=== PATIENT | male | born 1955 | race Caucasian/White ===

== ENCOUNTER → 2020-05-03 | Outpatient (CLI) | payer BC ==
[~2020-05-03] MED LIST: AMLO1TAB24 PO; ATOR1TAB21 PO; HYDR25TAB PO; IRBE300T7 PO; METO1TAB7 PO
--- NOTE | 2020-05-03 10:22 | RADONC.CN ---
Radiation Oncology Hx/Consult Radiation Oncology Consult Date of Service: May 03, 2020 Pt Identifier Jm Nichols is a 64 year old male with a history of prostate cancer T1c Kacy 3+3=6 PSA 20.8 who is seen for consideration of RT. Diagnosis/Treatment History Oncologic History Followed by Dr. Mehta for elevated PSA: 08/16/19 PSA 3.3 02/27/20 20.8 03/16/20 TRUS biopsy: Kacy 3+3=6 in 2/12 cores Patient was referred to medical oncology and staging studies were ordered: 05/03/20 Bone scan pending 05/17/20 MRI prostate pending IPSS 2 CESAR 21 Interval History Feels well. No bone pain. Had recent knee replacement which is his only source of pain. He has stable 1x nocturia as his only urinary symptom. He has good stream. He has good erectile function. He has regular bowel movements daily with no bleeding in his stool. Appetite good weight stable. Past Medical History: HPL HTN Past Surgical History: Knee replacement Elbow surgery Family History: No family cancer history Social History: Non-smoker Drinks 1-2 drinks daily Allergies / Meds Allergies: Coded Allergies: Golden (Verified Adverse Reaction, Severe, anaphylaxis, 04/24/20) apple (Verified Adverse Reaction, Severe, anaphylaxis, 04/24/20) Home Meds Reported Medications Metoprolol Succinate (Metoprolol Succinate) 50 Mg Tab.er.24h, 1 TAB PO DAILY 04/24/20 Irbesartan (Irbesartan) 300 Mg Tablet, 1 TAB PO DAILY 04/24/20 Amlodipine Besylate (Amlodipine Besylate) 5 Mg Tablet, 1 TAB PO DAILY 04/24/20 Atorvastatin Calcium (Atorvastatin Calcium) 20 Mg Tablet, 1 TAB PO DAILY 04/24/20 Hydrochlorothiazide (Hydrochlorothiazide) 25 Mg Tablet, 1 TAB PO QAM 04/24/20 Review of Systems Constitutional: Denies: Chills, Fever, Night Sweats Eyes: Denies: Pain, Vision change HEENT: Denies: Head Aches, Dysphagia, Sore Throat Skin: Denies: Rash, Lesions, Bruising Pulmonary: Denies: Dyspnea, Cough, Pleuritic Chest Pain, Other Symptoms Cardiovascular: Denies: Chest Pain, Palpitations, Edema Gastrointestinal: Denies: Nausea, Vomiting, Abdominal Pain, Diarrhea Genitourinary: Denies: Dysuria, Frequency, Incontinence Hematologic: Denies: Bruising, Petecchia, Enlarged Lymph Nodes Musculoskeletal: Reports: Leg pain; Denies: Neck pain, Back pain Neurological: Denies: Weakness, Numbness, Incoordination Psych: Reports: Mood Normal; Denies: Memory Issues, Thoughts of Self Harm Vital Signs Ht 70 Wt 182 lb T 98 P 73 RR 18 BP 158/82 O2 98% Pain 0 Fatigue 0 General Exam: Positive: Alert, Cooperative, No Acute Distress Eye Exam: Positive: PERRLA, EOMI ENT EXAM: Positive: Mucous membr. moist/pink, Pharynx Normal Neck Exam: Negative: Thyromegaly, Lymphadenopathy Chest Exam: Positive: Normal air movement; Negative: Rales, Rhonchi, Wheezing Heart Exam: Positive: Rate Normal, Regular Rhythm Abdomen Exam: Positive: Soft; Negative: Tenderness, Mass Male Exam: Positive: Normal Prostate; Negative: Lesions, Tenderness Extremity Exam: Negative: Edema, Tenderness Skin Exam: Positive: Nl turgor and temperature; Negative: Rash Neuro Exam: Positive: Normal Gait, Normal Speech, Cranial Nerves 3-12 NL; Negative: Strength at 5/5 X4 ext, Normal Tone, Sensation Intact, Reflexes 2+, Other Diagnostic and Laboratory Diagnostic Review Radiologic images, relevant labs and pathology reports were personally reviewed and discussed with Mr. Nichols. Assessment and Plan Impression Mr. Nichols is a 64 year old male with a history of T1c Kacy 3+3=6 PSA 20.8 who is seen for consideration of RT. Stage [id number] [place] 3+3=6 PSA 20.8 prostate adenocarcinoma Performance Status ECOG 0 Plan We had an extensive discussion with Mr. Nichols regarding the diagnosis at hand and available therapeutic options. He is a healthy man, with no urinary or ED symptoms at baseline. I am not comfortable classifying him as high risk prostate cancer as of yet, given his incomplete staging and lack of follow up PSA testing after the abnormal result in February 2020. I do not think testing now post biopsy would be useful and so have ordered a repeat level in June 2020 (he wishes to defer management decisions about his prostate cancer until after the holidays, which is entirely reasonable). He has staging bone scan and MRI prostate pending which will be useful given the high PSA reading and the discordant small volume of Kacy 6 in only 2/12 cores on biopsy. It is speculative at this point where in the risk groupings he will fall therefore discussions of treatment options today were equally speculative. Given his youth and health, no doubt he would be appropriate for surgery if no additional high risk features are uncovered on staging. He would also be appropriate for SBRT with SpaceOAR which I discussed with him in detail. I would given 36.25 Gy in 5 fractions with VMAT. If however, he had a high risk lesion on MRI or additional rise in PSA, then I would likely err on the side of moderate hypofractionation +/- SpaceOAR and ADT as appropriate. I reviewed the side effect profiles of surgery and RT in general. He will see Dr. Warren in [place] for his opinion on RP. I will see Mr. Nichols back in June with repeat PSA to review final recommendations. After discussing the risks, benefits and alternatives to radiation therapy, Mr. Nichols was amenable to pursuing staging and a surgical opinion prior to deciding. We instructed the patient that if there were any questions,concerns or changes in clinical status in the interim to contact us. Recommendations Follow up in June 2020 with repeat PSA Bone scan MRI prostate as previously ordered Surgical opinion in [place] RANDY HAMMOND MD May 03, 2020 10:22
== END ==
LOC: M ONCR 07:48
PROVIDERS: ATTEND General Practice
DX: C61 Malignant neoplasm of prostate (principal)

== ENCOUNTER → 2020-05-03 | Outpatient (CLI) | payer BC ==
--- NOTE | 2020-05-03 14:45 | REP ---
INDICATION: PROSTATE CANCER. COMPARISON: None. TECHNIQUE/RADIOTRACER AND DOSE: Following the intravenous administration of 22.0 mCi technetium 99 M MDP, multiple images of the whole body are obtained 3 hours post injection in various projections. FINDINGS: There is focal increased uptake in the posterior right 7th through 11th ribs compatible with rib fractures. There is mild arthritic uptake at both acromioclavicular joints. Photopenic right knee prosthesis is noted. There is significant increased uptake in the right patella, in the distal right femur and proximal tibia. There is mildly increased uptake extending into the adjacent femoral and tibial shafts. There is mild increased soft tissue uptake in the right lower extremity. Renal and bladder activity are seen. IMPRESSION: Focal increased uptake in the posterior right 7th through 11th ribs compatible with rib fractures. Fairly intense increased uptake in the distal right femur and proximal right tibia as well as the patella. There is a photopenic right knee prosthesis. There is also mild increased uptake extending into the adjacent right femoral and tibial shafts, with mild adjacent soft tissue uptake. Findings may indicate prosthetic loosening or infection. Clinical correlation is necessary. Consider correlation with plain films. <Electronically signed by Markie Fatima > 05/03/20 [id number]
== END ==
LOC: M RAD 09:14
PROVIDERS: ATTEND Internal Medicine Hematology & Oncology
DX: C61 Malignant neoplasm of prostate (principal)
CPT/HCPCS: 78306; A9503

== ENCOUNTER → 2022-08-11 | Outpatient (REF) | payer MEDICARE ==
[~2022-08-11] MED LIST changes: +HYDR-3490 PO; -HYDR25TAB PO
[2022-08-11 18:18] LABS: TOTAL PROTEIN,RANDOM URINE 52.3 MG/DL (0.0-14.0)
[2022-08-11 18:23] LABS: CREATININE,RANDOM URINE 150.9 MG/DL
== END ==
LOC: M LAB REF 17:37
PROVIDERS: ATTEND Internal Medicine Nephrology
DX: N18.2 Chronic kidney disease, stage 2 (mild) (principal); R80.9 Proteinuria, unspecified

== ENCOUNTER → 2022-11-18 | Outpatient (REF) | payer MEDICARE ==
[2022-11-18 19:18] LABS: TOTAL PROTEIN,RANDOM URINE 30.5 MG/DL (0.0-14.0)
[2022-11-18 19:22] LABS: CREATININE,RANDOM URINE 104.3 MG/DL
== END ==
LOC: M LAB REF 17:06
PROVIDERS: ATTEND Internal Medicine Nephrology
DX: I10 Essential (primary) hypertension (principal); R80.9 Proteinuria, unspecified

== ENCOUNTER → 2023-04-14 | Outpatient (REF) | payer MEDICARE ==
[2023-04-14 18:31] LABS: TOTAL PROTEIN,RANDOM URINE 26.7 MG/DL (0.0-14.0)
== END ==
LOC: M LAB REF 17:41
PROVIDERS: ATTEND Internal Medicine Nephrology
DX: R80.9 Proteinuria, unspecified (principal)

== ENCOUNTER → 2023-09-09 | Outpatient (REF) | payer MEDICARE ==
[~2023-09-09] MED LIST changes: +IRBE300T25 PO; -IRBE300T7 PO
[2023-09-10 05:42] LABS: TOTAL PROTEIN,RANDOM URINE 192.4 MG/DL (0.0-14.0)
== END ==
LOC: M LAB REF 16:40
PROVIDERS: ATTEND Internal Medicine Nephrology
DX: R80.9 Proteinuria, unspecified (principal)

== ENCOUNTER → 2024-06-16 | Outpatient (REF) | payer MEDICARE ==
[2024-06-16 17:54] LABS: OSMOLALITY URINE 284 MOSM/KG (50-1400)
[2024-06-16 18:12] LABS: SODIUM,RANDOM URINE 31 MMOL/L
[2024-06-16 18:23] LABS: ALBUMIN 3.8 G/DL (3.2-5.2); BLOOD UREA NITROGEN 10 MG/DL (9-23); CALCIUM LEVEL 9.6 MG/DL (8.3-10.6); CARBON DIOXIDE LEVEL 24 MMOL/L (20-31); CHLORIDE LEVEL 96 MMOL/L (98-107); CREATININE FOR GFR 0.69 MG/DL (0.70-1.30); GLOMERULAR FILTRATION RATE > 60.0 (>49); GLUCOSE, FASTING 100 MG/DL (74-106); PHOSPHORUS LEVEL 3.6 MG/DL (2.4-5.1); POTASSIUM SERUM 3.9 MMOL/L (3.5-5.1); SODIUM LEVEL 135 MMOL/L (136-145)
[2024-06-16 18:25] LABS: THYROID STIMULATING HORMONE 9.093 uIU/ML (0.55-4.78)
[2024-06-16 18:26] LABS: FREE T4 1.74 NG/DL (0.89-1.76)
[2024-06-16 19:22] LABS: OSMOLALITY SERUM 283 MOSM/KG (280-301)
== END ==
LOC: M LAB REF 17:12
PROVIDERS: ATTEND Internal Medicine Nephrology
DX: E87.1 Hypo-osmolality and hyponatremia (principal)

== ENCOUNTER 2025-06-14 11:00 | Emergency (ER) | payer MEDICARE ==
[~2025-06-14] VITALS: Ht 175.3 cm; Wt 80.8 kg
[2025-06-14] MEDS ORDERED: ISOVUE-370 76% 100 ML VIAL As Ordered ONE (11:38)
[2025-06-14 12:00] VITALS: BP 147/83
[2025-06-14 12:07] LABS: BASO # 0.1 10^3/uL (0.0-0.2); BASO % 0.8 % (0.0-1.0); EOS # 0.0 10^3/uL (0.0-0.5); EOS % 0.1 % (0.0-3.0); LYMPH # 0.7 10^3/uL (1.5-5.0); LYMPH % 6.9 % (24.0-44.0); MONO # 1.0 10^3/uL (0.0-0.8); MONO % 10.1 % (2.0-8.0); NEUTROPHILS # 7.8 10^3/uL (1.5-8.5); NEUTROPHILS % 81.5 % (36.0-66.0); PLATELET COUNT, AUTOMATED 269 10^3/uL (150-450)
[2025-06-14 12:21] LABS: ETHYL ALCOHOL (ETHANOL) < 0.003 % (0.000-0.010)
[2025-06-14 12:23] LABS: OSMOLALITY SERUM 284 MOSM/KG (280-301)
[2025-06-14 12:27] LABS: ALT/SGPT 16 U/L (7.0-40); AST/SGOT 93 U/L (<34); CALCIUM LEVEL 5.5 MG/DL (8.3-10.6); CARBON DIOXIDE LEVEL 16 MMOL/L (20-31); CHLORIDE LEVEL 113 MMOL/L (98-107); CREATININE FOR GFR 0.45 MG/DL (0.70-1.30); GLOMERULAR FILTRATION RATE > 90.0 (>49); POTASSIUM SERUM 2.2 MMOL/L (3.5-5.1); SODIUM LEVEL 144 MMOL/L (136-145)
[2025-06-14 12:32] LABS: INR 1.14
[2025-06-14 13:28] LABS: CALCIUM LEVEL 9.9 MG/DL (8.3-10.6); CARBON DIOXIDE LEVEL 25 MMOL/L (20-31); CHLORIDE LEVEL 96 MMOL/L (98-107); CREATININE FOR GFR 0.76 MG/DL (0.70-1.30); GLOMERULAR FILTRATION RATE > 90.0 (>49); POTASSIUM SERUM 3.5 MMOL/L (3.5-5.1); SODIUM LEVEL 133 MMOL/L (136-145)
[2025-06-14] MEDS: ONDANSETRON 4MG/2ML VIAL IV ONE (13:58)
[2025-06-14] MEDS: niCARdipine IV 40 MG in IV 1 EA IV SCH (14:00)
[2025-06-14 14:01] VITALS: BP 153/86; TEMP 96.9; O2SAT 93
== END 2025-06-14 14:05 | disposition short-term general hospital (02) ==
LOC: M ED 11:00 → EDBD 11:00 → M ED 14:05
DX: S06.6X0A Traumatic subarachnoid hemorrhage without loss of consciousness, initial encounter (principal); Y92.9 Unspecified place or not applicable; Y93.9 Activity, unspecified; Y99.9 Unspecified external cause status; W01.10XA Fall on same level from slipping, tripping and stumbling with subsequent striking against unspecified object, initial encounter; R00.0 Tachycardia, unspecified; I45.81 Long QT syndrome; I10 Essential (primary) hypertension; E78.00 Pure hypercholesterolemia, unspecified; Z91.018 Allergy to other foods; Z79.899 Other long term (current) drug therapy
CPT/HCPCS: 70450; 71045; 72125; 80047; 80048; 80076; 82077; 82140; 83930; 84443; 85025; 85610; 85730; 93005; 93041; 94760; 96374; 96375; 99285; J2405